=== PATIENT | female | born 1980 | race Caucasian/White ===

== ENCOUNTER 2021-02-19 15:14 | Emergency (ER) | payer BC ==
[~2021-02-19] VITALS: Ht 160 cm; Wt 63.0 kg
[2021-02-19] MEDS ORDERED: TraMADol HCL 50 MG TABLET PO ONE (16:15)
[2021-02-19] MEDS ORDERED: BACITRACIN 0.9 GM PACKET OINTMENT TP ONE (16:15)
[2021-02-19] MEDS ORDERED: POVIDONE-IODINE 10% 15 ML SOLUTION UD TP ONE (16:15)
[2021-02-19] MEDS ORDERED: LIDOCAINE 1% 10 ML VIAL SQ ONE (16:15)
[2021-02-19 17:21] VITALS: BP 108/68
== END 2021-02-19 17:31 | disposition home or self-care (01) ==
LOC: EMS 15:24
DX: S61.411A Laceration without foreign body of right hand, initial encounter (principal); E05.90 Thyrotoxicosis, unspecified without thyrotoxic crisis or storm; W25.XXXA Contact with sharp glass, initial encounter; Y93.89 Activity, other specified; Y92.89 Other specified places as the place of occurrence of the external cause; Y99.8 Other external cause status
CPT/HCPCS: 12001; 99283; J3490

== ENCOUNTER 2023-09-21 06:14 | Emergency (ER) | payer BC ==
[~2023-09-21] VITALS: Ht 157.5 cm; Wt 75.0 kg
[2023-09-21 06:39] VITALS: TEMP 98.2
[2023-09-21] MEDS: FAMOTIDINE 20 MG/2 ML VIAL IVP ONE (07:09)
[2023-09-21] MEDS: MAG HYDROX/ALUMINUM HYD/SIMETH 30 ML SUSPENSION UDCUP PO ONE (07:09)
[2023-09-21] MEDS: KETOROLAC TROMETHAMINE 30 MG/ML VIAL IVP ONE (07:09)
[2023-09-21] MEDS: SODIUM CHLORIDE 0.9% 1,000 ML IV ONE (07:09)
[2023-09-21] MEDS ORDERED: SODIUM CHLORIDE 0.9% 100 ML ONE (07:10)
[2023-09-21] MEDS ORDERED: IOHEXOL 350 MG/ML 100 ML VIAL ONE (07:10)
[2023-09-21 08:11] LABS: BASOPHILS % (AUTO) 0.5 % (0.0-2.0); EOSINOPHILS % (AUTO) 4.9 % (1.0-6.0); HEMATOCRIT 39.9 % (36-46); HEMOGLOBIN 12.9 g/dL (12.0-16.0); LYMPHOCYTES # (AUTO) 2.6 K/uL (1.0-4.8); LYMPHOCYTES % (AUTO) 36.8 % (22.0-44.0); MEAN CORPUSCULAR HEMOGLOBIN 26.6 pg (26.0-34.0); MEAN CORPUSCULAR HGB CONC 32.4 G/dL (31.0-37.0); MEAN CORPUSCULAR VOLUME 82 fL (80-100); MONOCYTES # (AUTO) 0.5 K/uL (0.1-1.0); MONOCYTES % (AUTO) 6.9 % (2.0-9.0); NEUTROPHILS # (AUTO) 3.7 K/uL (1.8-7.7); NEUTROPHILS % (AUTO) 50.9 % (40.0-70.0); PLATELET COUNT (AUTO) 255 K/uL (150-450); RED BLOOD CELL COUNT(AUTO) 4.86 MIL/uL (4.00-5.20); RED CELL DISTRIBUTION WIDTH 14.6 % (11.5-14.5); WHITE BLOOD COUNT (AUTO) 7.2 K/uL (4.5-11.0)
[2023-09-21 08:15] LABS: ANION GAP 12 mmol/L (8-16); CALCIUM, TOTAL 8.7 mg/dL (8.8-10.5); CARBON DIOXIDE 22 mmol/L (22-29); CHLORIDE 101 mmol/L (98-107); CREATININE 0.61 mg/dL (0.60-1.30); GLOMERULAR FILTR. RATE CALC > 60 mL/min (>60); GLUCOSE,RANDOM 101 mg/dL (70-110); POTASSIUM 3.2 mmol/L (3.5-5.1); SODIUM SERUM 135 mmol/L (136-145); UREA NITROGEN, BLOOD 12 mg/dL (7-18)
[2023-09-21 08:20] LABS: ALANINE AMINOTRANSFERASE 40 U/L (12-78); ALBUMIN 3.5 g/dL (3.4-5.0); ALKALINE PHOSPHATASE 138 U/L (46-116); ASPARTATE AMINOTRANSFERASE 49 U/L (15-37); BILIRUBIN,TOTAL 0.4 mg/dL (0.1-1.0); CREATINE KINASE, TOTAL ONLY 69 U/L (26-192); LIPASE 54 U/L (16-77); TOTAL PROTEIN, SERUM 7.3 g/dL (6.4-8.2)
[2023-09-21 08:24] LABS: TROPONIN I-HIGH SENSITIVITY 13 ng/L (<51)
[2023-09-21 08:32] LABS: B-TYPE NATRIURETIC PEPTIDE 7 pg/mL (0-100)
[2023-09-21 08:56] VITALS: BP 126/66; PULSE 86; RESP 16
[2023-09-21] MEDS: POTASSIUM CHLORIDE 20 MEQ ER TABLET PO ONE (08:56)
== END 2023-09-21 10:07 | disposition home or self-care (01) ==
LOC: EMS 06:15
DX: R07.9 Chest pain, unspecified (principal); R10.9 Unspecified abdominal pain
CPT/HCPCS: 99285; 74177; 96374; 76705; 71045; 96361; 80053; 82550; 83690; 84484; 84703; 85025; 36415; 93005; J3490; Q9967; J7030; J7050